=== PATIENT | female | born 1985 | race Caucasian/White ===

== ENCOUNTER 2018-06-01 21:36 | Emergency (ER) | payer MEDICAID ==
[~2018-06-01] VITALS: Ht 162.6 cm; Wt 62.7 kg
[2018-06-01] MEDS ORDERED: LORazepam 1 MG tablet PO ONE (22:35)
[2018-06-01 22:55] LABS: URINE HCG NEGATIVE (NEG)
[2018-06-01] MEDS ORDERED: OLANZapine 5mg rapidly disint. tablet PO ONE (23:00)
[2018-06-01 23:10] LABS: URINE AMPHETAMINE SCREEN NEGATIVE (Neg); URINE BARBITUATE SCREEN NEGATIVE (Neg); URINE BENZODIAZEPINES SCREEN POSITIVE (Neg); URINE CANNABINOID SCREEN POSITIVE (Neg); URINE COCAINE SCREEN NEGATIVE (Neg); URINE METHADONE SCREEN NEGATIVE (Neg); URINE OPIATE SCREEN NEGATIVE (Neg); URINE PHENCYCLIDINE SCREEN NEGATIVE (Neg)
[2018-06-01 23:22] LABS: CLARITY,URINE SLIGHTLY CLOUDY (Clear); COLOR,URINE YELLOW (Yellow); GLUCOSE, URINE NEGATIVE (Neg); KETONES,URINE 15 mg/dl (Neg); LEUKOCYTE ESTERASE ,URINE TRACE (Neg); NITRITES, URINE NEGATIVE (Neg); OCCULT BLOOD,URINE SMALL (Neg); PROTEIN,URINE 30 mg/dl (Neg); UROBILINOGEN,URINE 0.2 E.U/dL (0.2-1.0)
[2018-06-01 23:25] LABS: UA COLLECTION TYPE CLN CATCH MIDSTREAM
[2018-06-01 23:44] LABS: BACTERIA,URINE 3+ /HPF (Neg); MUCUS STRANDS MANY /LPF (Neg); RBC,URINE 0-2 /HPF (0-2); SQUAMOUS EPITHELIAL CELL,UR MANY /LPF (FEW)
[2018-06-01 23:45] LABS: FINE GRANULAR CAST 0-3 /LPF (NEGATIVE)
[2018-06-02 01:12] LABS: BASOPHILS # (AUTO) 0.1 X10'3 (0-0.2); BASOPHILS % (AUTO) 0.6 % (0-1); EOSINOPHILS % (AUTO) 0.1 % (0-6); HEMATOCRIT 38.1 % (35.0-45.0); HEMOGLOBIN 13.1 g/dl (12.0-16.0); LYMPHOCYTES # (AUTO) 2.1 X10'3 (1.1-4.8); LYMPHOCYTES % (AUTO) 21.9 % (21-51); MEAN CORPUSCULAR HGB CONC 34.3 % (33.0-36.5); MEAN PLATELET VOLUME 8.7 FL (7.4-10.4); MONOCYTES # (AUTO) 0.5 X10'3 (0-0.9); MONOCYTES % (AUTO) 5.6 % (2-12); NEUTROPHILS # (AUTO) 6.7 X10'3 (1.8-7.7); NEUTROPHILS % (AUTO) 71.8 % (42-75); PLATELET COUNT 250 X10'3 (140-440); RED CELL DISTRIBUTION WIDTH 11.4 % (11.5-14.5); WHITE BLOOD COUNT 9.4 X10'3 (4.5-11.0)
[2018-06-02 01:23] LABS: ALANINE AMINOTRANSFERASE 21 U/L (12-78); ALBUMIN/GLOBULIN RATIO 1.3 (1.1-1.5); ALKALINE PHOSPHATASE 62 IU/L (46-116); ANION GAP 10 (8-16); ASPARTATE AMINO TRANSFERASE 17 U/L (10-37); BILIRUBIN,TOTAL 0.7 MG/DL (0.1-1.0); BLOOD UREA NITROGEN 6 MG/DL (7-18); BUN/CREATININE RATIO 8.7 (6.6-38.0); CHLORIDE 105 MMOL/L (99-107); CREATININE 0.69 MG/DL (0.40-0.90); ETHANOL < 0.010 GM/DL (0.0-0.010); GLUCOSE 90 MG/DL (70-104); SODIUM 142 MMOL/L (135-145); TOTAL CARBON DIOXIDE 26.7 MMOL/L (24-32); TOTAL PROTEIN 7.1 G/DL (6.4-8.2); eGFR > 90 ML/MIN
[2018-06-02] MEDS ORDERED: magnesium oxide 400mg tablet PO ONE (01:40)
[2018-06-02] MEDS ORDERED: potassium Cl 20 mEq SR tablet PO ONE (01:40)
[2018-06-02] MEDS ORDERED: HYDR-3686 PO (01:49)
[2018-06-02] MEDS ORDERED: LAMO25TA4 PO (01:49)
[2018-06-02] MEDS ORDERED: lamoTRIgine 25mg tablet PO SCH ×2 (01:55→08:00)
[2018-06-02] MEDS ORDERED: lamoTRIgine 100mg tablet PO SCH ×2 (02:15→08:00)
[2018-06-02] MEDS: OLANZapine 2.5MG tablet PO SCH ×2 (07:51→20:06)
[2018-06-02] MEDS: hydrOXYzine 25 MG tablet PO PRN ×2 (07:51→20:06)
[2018-06-02] MEDS ORDERED: OLANZapine 2.5MG tablet PO SCH (08:00)
[2018-06-02] MEDS: OLANZapine 2.5MG tablet PO PRN (11:30)
[2018-06-02] MEDS ORDERED: LORazepam 1 MG tablet PO ONE (14:40)
[2018-06-03] MEDS: OLANZapine 2.5MG tablet PO PRN ×2 (02:51→15:49)
[2018-06-03] MEDS ORDERED: lamoTRIgine 25mg tablet PO SCH (08:00)
[2018-06-03] MEDS: OLANZapine 2.5MG tablet PO SCH ×2 (08:50→19:26)
[2018-06-03] MEDS ORDERED: ERGO500014 PO (09:15)
[2018-06-03] MEDS: hydrOXYzine 25 MG tablet PO PRN (11:18)
[2018-06-03] MEDS ORDERED: acetaminophen 325mg tablet PO ONE (11:45)
[2018-06-03] MEDS ORDERED: acetaminophen 325mg tablet PO PRN (11:45)
[2018-06-03] MEDS ORDERED: ibuprofen tablet 400 MG TABLET PO PRN (16:55)
[2018-06-03] MEDS ORDERED: ibuprofen 200mg tablet PO PRN (16:55)
[2018-06-03 18:41] VITALS: BP 156/107
== END 2018-06-03 19:33 | disposition home or self-care (01) ==
LOC: ER 21:37
DX: F23 Brief psychotic disorder (principal); F31.9 Bipolar disorder, unspecified; F12.90 Cannabis use, unspecified, uncomplicated; F17.200 Nicotine dependence, unspecified, uncomplicated; Z79.899 Other long term (current) drug therapy
CPT/HCPCS: 36415; 80053; 80305; 80320; 81001; 81025; 84443; 85025; 99285; Q0177